=== PATIENT | male | born 1950 | race Hispanic/Latino ===

== ENCOUNTER 2018-12-10 10:01 | Emergency (ER) | payer OTHER ==
[2018-12-10] MEDS ORDERED: HYDROCODONE/ACETAMINOPHEN 5/325 MG TAB ONE (10:17)
== END 2018-12-10 11:52 | disposition home or self-care (01) ==
LOC: EDH 10:01
DX: S13.4XXA Sprain of ligaments of cervical spine, initial encounter (principal); E11.9 Type 2 diabetes mellitus without complications; F43.10 Post-traumatic stress disorder, unspecified; Z72.0 Tobacco use; V49.49XA Driver injured in collision with other motor vehicles in traffic accident, initial encounter; Y93.89 Activity, other specified; Y92.89 Other specified places as the place of occurrence of the external cause; Y99.8 Other external cause status
CPT/HCPCS: 71045; 72040; 72125; 72170

== ENCOUNTER 2020-02-12 22:17 | Emergency (ER) | payer OTHER ==
[2020-02-12] MEDS ORDERED: AMOXICILLIN 500 MG CAPSULE PO ONE (23:25)
== END 2020-02-12 23:32 | disposition home or self-care (01) ==
LOC: EDH 22:17
DX: S01.512A Laceration without foreign body of oral cavity, initial encounter (principal); E11.9 Type 2 diabetes mellitus without complications; Z72.0 Tobacco use; W06.XXXA Fall from bed, initial encounter; Y93.89 Activity, other specified; Y92.89 Other specified places as the place of occurrence of the external cause; Y99.8 Other external cause status

== ENCOUNTER 2020-08-27 15:30 | Emergency (ER) | payer OTHER ==
[2020-08-27] MEDS ORDERED: LIDOCAINE HCL 1% 20 ML VIAL ONE (17:15)
[2020-08-27] MEDS ORDERED: TETANUS/DIPHTHERIA TOXOID [ADULT] 0.5 ML VIAL IM ONE (17:16)
== END 2020-08-27 19:23 | disposition home or self-care (01) ==
LOC: EDH 15:30
DX: S51.812A Laceration without foreign body of left forearm, initial encounter (principal); E11.9 Type 2 diabetes mellitus without complications; F10.20 Alcohol dependence, uncomplicated; Z98.890 Other specified postprocedural states; F43.10 Post-traumatic stress disorder, unspecified; Z72.0 Tobacco use; W22.8XXA Striking against or struck by other objects, initial encounter; Y93.89 Activity, other specified; Y92.098 Other place in other non-institutional residence as the place of occurrence of the external cause; Y99.8 Other external cause status
CPT/HCPCS: 12032; 73090; 90471; 90714

== ENCOUNTER 2020-09-05 10:32 | Emergency (ER) | payer OTHER | END 2020-09-05 12:39 | disposition home or self-care (01) | LOC: EDH 10:32 | DX: S51.812D Laceration without foreign body of left forearm, subsequent encounter (principal); E11.9 Type 2 diabetes mellitus without complications; F43.10 Post-traumatic stress disorder, unspecified; Z72.0 Tobacco use; X58.XXXD Exposure to other specified factors, subsequent encounter | CPT/HCPCS: 99282 ==

== ENCOUNTER 2020-12-03 12:06 | Emergency (ER) | payer OTHER ==
[~2020-12-03] VITALS: Ht 167.6 cm; Wt 69.4 kg
== END 2020-12-03 13:38 | disposition left against medical advice (07) ==
LOC: EDH 12:06
DX: Z76.0 Encounter for issue of repeat prescription (principal); Z53.21 Procedure and treatment not carried out due to patient leaving prior to being seen by health care provider

== ENCOUNTER 2024-06-13 10:24 | Emergency (ER) | payer OTHER ==
[~2024-06-13] VITALS: Ht 167.6 cm; Wt 68.9 kg
[2024-06-13] MEDS: ORPHENADRINE 60MG/2ML IM ONE (11:37)
--- NOTE | 2024-06-13 11:44 | HMCIMG ---
LUMBAR SPINE 2-3VWS HISTORY: Status post fall COMPARISON: None FINDINGS: 3 images of lumbar spine were obtained. Vascular calcifications are seen. Disc space narrowing is seen at the L5-S1 level. There are degenerative changes with lumbar spine spondylosis. There is straightening of normal lordotic curvature which may be related to muscle spasm or positioning. No loss of vertebral height is seen. No fracture or dislocation is seen. Degenerative changes are seen. IMPRESSION: 1. No fracture is seen. DJD.
--- NOTE | 2024-06-13 11:54 | ERN ---
General Chief Complaint: Back Pain or Injury Stated Complaint: FALL 2 DYS AGO, PAIN Time Seen by MD: 10:25 Source: patient History of Present Illness Initial Comments PATIENT IS A 73-YEAR-OLD MALE COMING IN TO BE EVALUATED FOR BACK PAIN. PER PATIENT HE FELL DOWN TWO DAYS AGO AND HAS BEEN HAVING BACK PAIN SINCE. HE STATES HE HAD A MECHANICAL FALL IN HIS HERE FOR FURTHER EVALUATION. HE LOCALIZES THE PAIN TO THE LOWER BACK REGION. Allergies: Coded Allergies: No Known Allergies (Unverified Allergy, Unknown, 04/15/20) Home Meds No Active Prescriptions or Reported Meds Past Medical History Past Medical History: Diabetes-Type II, High Cholesterol Past Surgical History: Other Surgical History Other: LT SHOULDER SX ROS Dictation CONSTITUTIONAL: NO CHILLS, NO FEVER, NO WEAKNESS, NO DIAPHORESIS, NO MALAISE. HEAD/FACE: NO SIGNS OF TRAUMA. EENT: NO EYE PAIN, NO BLURRED VISION, NO TEARING, NO DOUBLE VISION, NO EAR PAIN, NO EAR DISCHARGE, NO NOSE PAIN, NO NASAL CONGESTION, NO THROAT PAIN, NO THROAT SWELLING, NO MOUTH PAIN. RESPIRATORY: NO COUGH, NO ORTHOPNEA, NO SOB, NO STRIDOR, NO WHEEZING. CARDIOVASCULAR: NO CHEST PAIN, NO EDEMA, NO PALPITATIONS, NO SYNCOPE. GASTROINTESTINAL/ABDOMINAL: NO ABDOMINAL PAIN, NO CONSTIPATION, NO DIARRHEA, NO NAUSEA, NO VOMITING. GENITOURINARY: NO ABNORMAL DISCHARGE, NO DYSURIA, NO FREQUENT URINATION, NO HEMATURIA. NO COMPLAINTS OF PAIN IN THE GENITALS. MUSCULOSKELETAL: BACK PAIN, NO GOUT, NO JOINT PAIN, NO JOINT SWELLING, NO MUSCLE PAIN, NO MUSCLE STIFFNESS, NO NECK PAIN. INTEGUMENTARY: NO CHANGE IN COLOR, NO CHANGE IN HAIR/NAILS, NO DRYNESS, NO LESION, NO LUMPS, NO RASH. NEUROLOGICAL/PSYCH: NO ANXIETY, NOT DEPRESSED, NO EMOTIONAL PROBLEM, NO HEADACHE, NO NUMBNESS, NO PRE-EXISTING DEFICIT, NO HISTORY OF SEIZURES, NO TREMORS, NO WEAKNESS. HEMATOLOGIC/LYMPHATIC: NOT ANEMIC, NO HISTORY OF BLOOD CLOTS, NO APPARENT BLEEDING, NO BRUISING, GLANDS NOT SWOLLEN. ALL SYSTEMS NEGATIVE, EXCEPT NOTED. Physical Exam Physical Exam Dictation VITAL SIGNS: REVIEWED. GENERAL APPEARANCE: ALERT, ORIENTED X3, NO ACUTE DISTRESS, OBESE. HEAD AND FACE: NON-TRAUMATIC. EYES: PERRL, PINK CONJUNCTIVAS, EYELID NO TRAUMA, ANTERIOR CHAMBER CLEAR. EARS: PINNAS INTACT AND NO SIGNS OF TRAUMA OR ERYTHEMA. EAR CANALS CLEAR AND NO DISCHARGE. TMS NO ERYTHEMA. NOSE: NO DISCHARGE, NO BLEEDING. OROPHARYNX: MOUTH NORMAL, TEETH NO CARIES, TONGUE PINK. PHARYNX CLEAR, NO ERYTHEMA. TONSILS NO EXUDATES, NO ABSCESSES NOTED. MUCOUS MEMBRANE MOIST. NECK: SUPPLE, NON-TENDER, NO THYROMEGALY, NO MASSES, NO JVD, NO BRUITS. BREAST: DEFERRED. CHEST: NO TENDERNESS, NO CREPITUS, NO PARADOXICAL MOVEMENT, NO RETRACTIONS. LUNGS: CLEAR, WELL-VENTILATED, SYMMETRIC, NO RALES, NO WHEEZING, NO RHONCHI, NO STRIDOR, GOOD BREATH SOUNDS BILATERALLY. HEART: REGULAR RATE, REGULAR RHYTHM, NO MURMUR, NO GALLOPS. VASCULAR: NO PERIPHERAL EDEMA. ABDOMEN: SOFT, POSITIVE BOWEL SOUNDS, NONDISTENDED, NO GUARDING, NONTENDER, NO REBOUND, NO MASSES NO HEPATOMEGALY, NO SPLENOMEGALY, NO VILLALOBOS'S SIGN, NO HERNIAS. RECTAL: DEFERRED. GENITAL: DEFERRED. NEUROLOGICAL: NORMAL SPEECH, GROSS MOTOR FUNCTION INTACT, GROSS SENSORY FUNCTION INTACT. MUSCULOSKELETAL: NECK NONTENDER, FULL RANGE OF MOTION, ASSISTANT AUDITOR, DECREASED RANGE OF MOTION. EXTREMITIES: NONTENDER, FULL RANGE OF MOTION. SKIN: COLOR PINK, DRY, NO TURGOR, NO RASH, NO LACERATIONS, NO ABRASIONS, NO CONTUSIONS. LYMPHATICS: DEFERRED. Results Laboratory and Microbiology Labs Reviewed?: Yes EKG/XRAY/US/CT/MRI X-RAY Comment [place] [id number] [id number] IMAGING REPORT Signed PATIENT: PEPITO COLLADO MR#: [id number] : 1950 SEX: M AGE: 73 LOCATION: [facility] ORDER [id number] STATUS: [facility] REPORT#: [id number] SERVICE 1032 REASON: FALL ORDERING PHYSICIAN: GINNA MUNSON MD PROCEDURE: LUMB 2 3VW - LUMBAR SPINE 2-3VWS LUMBAR SPINE 2-3VWS HISTORY: Status post fall COMPARISON: None FINDINGS: 3 images of lumbar spine were obtained. Vascular calcifications are seen. Disc space narrowing is seen at the L5-S1 level. There are degenerative changes with lumbar spine spondylosis. There is straightening of normal lordotic curvature which may be related to muscle spasm or positioning. No loss of vertebral height is seen. No fracture or dislocation is seen. Degenerative changes are seen. IMPRESSION: 1. No fracture is seen. DJD. DICTATED BY: MARTY LEO MD DATE: 06/13/24 1126 ELECTRONICALLY SIGNED BY: MARTY LEO MD DATE: 06/13/24 1144 Ultrasound Comment ULTRASOUND AORTA - NO AORTIC DISSECTION OR DILATION, MILD ARTERIOSCLEROSIS MDM MDM: DIFFERENTIAL DIAGNOSIS: FALL, LUMBAR STRAIN, LUMBAR NAUSEA, EXACERBATION OF CHRONIC BACK PAIN PATIENT IS A 73-YEAR-OLD MALE COMING IN TO BE EVALUATED FOR LUMBAR PAIN. PER PATIENT HE FELL DOWN TWO DAYS AGO IN HIS BEEN HAVING BACK PAIN. X-RAY DID NOT DISCLOSE ACUTE FINDINGS ULTRASOUND WAS PERFORMED TO RULE OUT ANY AORTIC INVOLVEMENT. WHICH THERE IS NO AORTIC INVOLVEMENT NO DISSECTION NO DILATION. ED Course Orders Procedure Category Date Status Time Lumbar Spine 2-3vws RAD 06/13/24 Resulted 10:32 Orphenadrine Citrate PHA 06/13/24 Complete (Norflex) 11:30 Us Aorta Limited US 06/13/24 Taken 11:08 Current Medications Medications (Trade) Dose Ordered Sig/Carolyne Route PRN Reason Start Time Stop Time Status Last Admin Dose Admin Orphenadrine Citrate (Norflex) 60 mg ONCE ONCE IM 06/13/24 11:30 06/13/24 11:31 DC 06/13/24 11:37 Vital Signs Date Time Temp Pulse Resp B/P (MAP) Pulse Ox O2 Delivery O2 Flow Rate FiO2 06/13/24 10:45 98.2 69 18 112/37 98 Room Air* 0 21 06/13/24 10:29 97.7 78 18 121/66 100 Room Air DX & DISP Disposition: Discharge Departure Impression: Primary Impression: Lumbar strain Additional Impression: LUMBAR STRAIN Condition: Stable Scripts Methocarbamol (Robaxin) 750 Mg Tab 1 TAB PO BID for 5 Days, #10 TAB 0 Refills Prov: GINNA MUNSON MD 06/13/24 Naproxen (Naproxen) 375 Mg Tablet 1 TAB PO BID for pain for 5 Days, #10 TAB 0 Refills with food Prov: GINNA MUNSON MD 06/13/24 Additional Instructions: FOLLOW-UP WITH PRIMARY CARE PROVIDER IN 1 TO 2 DAYS. TAKE MEDICATIONS DIRECTED HERE IN THE EMERGENCY ROOM. OKAY TO CONTINUE HOME MEDICATIONS UNLESS OTHERWISE DISCUSSED DURING YOUR VISIT IN THE EMERGENCY ROOM TODAY. RETURN TO YOUR NEAREST EMERGENCY ROOM IF SYMPTOMS WORSEN OR IF THERE IS NO IMPROVEMENT. CALL 911 IF YOU NEED IMMEDIATE ASSISTANCE. TAKE TYLENOL [id number] NEEDED AND IF NO CONTRAINDICATIONS ARE PRESENT. INCREASE ORAL HYDRATION. A WOUND CULTURE OR URINE CULTURE WAS ORDERED HERE IN THE EMERGENCY ROOM DEPARTMENT PLEASE FOLLOW-UP WITH PRIMARY CARE PROVIDER AND ADVISE THEM TO GET REPEAT PORTS FROM OUR FACILITY. IF YOU HAD ANY TAN WRAP/SPLINTS THAT WERE APPLIED HERE, PLEASE DO NOT REMOVE THEM UNTIL YOU SEE YOUR PRIMARY CARE OR SPECIALTY. REFERRALS: Referrals: JUNI VENTURA (PCP) Time of Disposition: 11:58 GINNA MUNSON MD Jun 13, 2024 11:54
[2024-06-13 11:58] VITALS: BP 114/48; PULSE 67; RESP 16; TEMP 98.2; O2SAT 99
[2024-06-13] MEDS ORDERED: METH-662 PO (11:59)
[2024-06-13] MEDS ORDERED: NAPR-1192 PO (11:59)
--- NOTE | 2024-06-13 12:30 | HMCIMG ---
US AORTA LIMITED REASON: LUMBAR PAIN/ RULE OUT TRIPLE A. COMPARISON: None TECHNIQUE: Limited abdominal aorta ultrasound study was performed. FINDINGS: Proximal portion of abdominal aorta measures 2 x 2.1 cm, midportion measures 1.8 x 2.3 cm and distal portion measures 1.8 x 1.5 cm. The iliac arteries are not well seen and cannot be fully evaluated. There is atherosclerosis. IMPRESSION: No sonographic evidence of abdominal aortic aneurysm is seen. The study is limited due to overlying bowel gas.
== END 2024-06-13 12:18 | disposition home or self-care (01) ==
LOC: EDH 10:24
DX: S39.012A Strain of muscle, fascia and tendon of lower back, initial encounter (principal); E11.9 Type 2 diabetes mellitus without complications; E78.00 Pure hypercholesterolemia, unspecified; X58.XXXA Exposure to other specified factors, initial encounter; Y93.89 Activity, other specified; Y92.89 Other specified places as the place of occurrence of the external cause; Y99.8 Other external cause status
CPT/HCPCS: 72100; 76775; 96372; 99285; J2360

== ENCOUNTER → 2025-01-06 | Outpatient (CLI) | payer OTHER ==
[~2025-01-06] MED LIST: ATOR40TA69 PO; DOXY100T2 PO; FLUO40CA49 PO; GLIP5TAB15 PO; METH-662 PO; METO25 PO; MVIT PO; NAPR-1192 PO; OLAN5TAB2 PO; OMEP40CA21 PO; PIOG30TA70 PO; TAMS-55 PO
[2025-01-06] MEDS: REGADENOSON 0.4 MG/5 ML PF SYG IVP ONE (09:06)
--- NOTE | 2025-01-06 14:58 | HMCSR ---
APPROVED REPORT Height: 5 ft 6in Weight: 152 lbs TEST INDICATIONS chronic systolic failure The imaging protocol used to acquire images was Rest Tc-99m/stress Tc-99m 1 day Consent: The procedure was explained and understood by the patient. Informerd consent was witnessed Lalo Sarkar RN First, low dose rest was performed then high dose stress. RESTING DATA: The resting ekg shows: NSR Rest SPECT myocardial perfusion imaging was performed in supine position minutes following the intra venous injection of 11 mCi of Tc-99 Sestamibi. Time of rest injection: 08:55: Date: 01/06/2025 PHARMACOLOGIC STRESS: Pharmacologic stress test was performed by injecting regadenoson 0.4 mg IV push followed by the intra venous injection of 30 mCi of Tc-99 Sestamibi. Time of stress injection: 10:27: Date: 01/06/2025 Heart Rate at time of stress injection: 76 bpm. Gated Stress SPECT was performed 60 minutes after stress injection. The images were gated to evaluate regional wall motion and calculate left ventricular ejection fracti on. STRESS DETAILS Reason for Termination: Infusion complete Stress Symptoms: Cough Max HR Achieved: 74 bpm % of APMHR Achieved: 60 Max Blood Pressure: 130/63 mmHg Stress ECG: NSR Arrhythmia: No. ST Change: No. Study quality was fair. Artifact: motion artifact, diaphragmatic artifact LEFT VENTRICLE Size: The left ventricular size is normal. Systolic Function:The left ventricular systolic function is normal. Wall Motion: No regional wall motion abnormalities noted. The left ventricular ejection fraction was calculated to be 57%.TID = 0.90. LV PERFUSION There is a large size, severe intensity, fully reversible perfusion defect seen in the basal/mid/apic al anterior, anterolateral and inferolateral holliday. RV Size/Shape Right ventricle was not well-visualized. IMPRESSION Stress ECG Summary: Nondiagnostic Conclusion Abnormal Lexiscan stress test. There is a large size, severe intensity, fully reversible perfusion defect seen in the basal/mid/apic al anterior, anterolateral and inferolateral holliday. The left ventricular size is normal. No regional wall motion abnormalities noted. The left ventricula r systolic function is normal. Post-stress LVEF was calculated to be 57%. Stress ECG Summary: Nondiagnostic Study indicates a high-risk for cardiovascular. Clinical correlation is advised.
== END | disposition home or self-care (01) ==
LOC: RAH 08:34
PROVIDERS: ATTEND Internal Medicine Cardiovascular Disease
DX: I50.22 Chronic systolic (congestive) heart failure (principal); R05.9 Cough, unspecified
CPT/HCPCS: 78452; 93017; J2785; A9500 ×2

== ENCOUNTER → 2025-05-04 | Outpatient (CLI) | payer OTHER ==
[~2025-05-04] MED LIST changes: +IOHEXOL 350 MG/ML 100ML INFUS..BTL IV ONE; +NITROGLYCERIN 4.9GM SPRAY 60 SPRAY/BOT SPRY TL ONE
--- NOTE | 2025-05-06 18:39 | CARDIOLOGY ---
RAD REPORT: [facility] CT ANGIO RADIOLOGY REPORT: CORONARY CT ANGIOGRAPHY DATE: May 06, 2025 QUALITY: Excellent CLINICAL HISTORY AND INDICATION: [ chest pain ] TECHNIQUE: After obtaining a preliminary air tool operator image, contrast imaging performed on an [employer] [id number] scanner. A dedicated, limited window, coronary imaging protocol was used, with single breath-hold, retrospective ECG gating, and automated arrhythmia rejection. 100 cc of low osmolar contrast agent: Omnipaque 350 was delivered via a 18-gauge IV catheter in the right antecubital fossa, using a power injector and followed by 60 cc of normal saline bolus as a chaser. Collimated images were reformatted at 0.5 mm intervals, and sent to an offline independent workstation for interpretation, using 3D anatomic reconstructions: Curved multiplanar reconstructions, maximum intensity projections, and multiplanar imaging. No metoprolol was administered prior to scanning due to low baseline heart rate. 0.8 mg SL nitroglycerin was given. CORONARY ARTERY DESCRIPTIONS: The coronary arteries arise in normal position. Left main coronary artery: Normal caliber vessel that bifurcates into the LAD and LCx. There is calcified plaque in the distal left main with 40-50% stenosis. Left anterior descending coronary artery: Normal caliber vessel and gives rise to diagonal and septal branches. There is mixed calcified and noncalcified plaque in the proximal to mid LAD with 80-90% stenosis. The D1 is heavily calcified with diffuse 70-80% stenosis. Left circumflex coronary artery: Normal caliber, nondominant and gives rise to a large OM branch. There is mixed calcified and noncalcified plaque in the ostial/proximal LCx with 70-80% stenosis. The OM1 is heavily calcified with diffusely moderate stenosis of 50-605. Right coronary artery: Large, dominant vessel giving rise to the PL and PDA branches. There is calcified plaque in the mid and distal RCA, both with 70-80% stenosis CAD-RADs: 4B, multivessel obstructive CAD. Thoracic Aorta: Normal diameter. Amee Espinosa MD Cardi[facility] AMEE ESPINOSA MD May 06, 2025 18:39
== END | disposition home or self-care (01) ==
LOC: RAH 08:39
PROVIDERS: ATTEND Internal Medicine Cardiovascular Disease
DX: I25.10 Atherosclerotic heart disease of native coronary artery without angina pectoris (principal)
CPT/HCPCS: 75574; Q9967 ×2